=== PATIENT | male | born 1990 | race Two or more races ===

== ENCOUNTER 2024-06-17 16:44 | Emergency (ER) | payer MEDICAID, OTHER ==
[~2024-06-17] VITALS: Ht 175.3 cm; Wt 90.0 kg
[2024-06-17 18:20] LABS: Basophils # (auto) 0 10 ^3/uL (0-0.2); Basophils % (auto) 0.3 % (0.0-2.0); Eosinophils # (auto) 0.1 10 ^3/uL (0-0.8); Eosinophils % (auto) 0.9 % (0.0-7.0); Hematocrit 48.2 % (41.0-53.0); Hemoglobin 16.2 g/dL (13.5-17.5); Lymphocytes # (auto) 2.5 10 ^3/uL (0.4-5.4); Mean Corpuscular Hemoglobin 30.9 pg (28.0-32.0); Mean Corpuscular Hgb Conc. 33.6 g/dL (32.0-36.0); Mean Corpuscular Volume 92.1 fL (80.0-100.0); Monocytes % (auto) 11.2 % (0.0-12.0); Neutrophils # (auto) 5.4 10 ^3/uL (1.6-8.6); Neutrophils % (auto) 59.6 % (37.0-80.0); Nucleated Red Blood Cells % 0.1 %; Platelet Count (auto) 164 10^3/uL (140-450); Red Blood Cells 5.24 10^6/uL (4.5-5.90); Red Cell Distribution Width 12.9 % (11.8-14.3); White Blood Cell 9.1 10^3/uL (4.4-10.8)
[2024-06-17 18:22] LABS: Alanine Aminotransferase 73 U/L (7-40); Albumin 4.1 g/dL (3.2-4.8); Alkaline Phosphatase 120 U/L (46-116); Anion Gap 6 (5-15); Aspartate Aminotransferase 30 U/L (13-40); BUN/Creatinine Ratio 19.7 (10.0-20.0); Bilirubin, Total 0.4 mg/dL (0.2-1.0); Blood Urea Nitrogen 15 mg/dL (9-23); Calcium 10.2 mg/dL (8.7-10.4); Carbon Dioxide 29 mmol/L (20-31); Chloride 108 mmol/L (98-107); Glucose 90 mg/dL (74-106); Potassium 4.6 mmol/L (3.5-5.1); Sodium 143 mmol/L (136-145); Total Protein 6.2 g/dL (5.7-8.2)
[2024-06-17] MEDS ORDERED: HYDR-3682 PO (20:02)
[2024-06-17 20:35] VITALS: BP 134/97; PULSE 89; RESP 16; O2SAT 99
[2024-06-17] MEDS ORDERED: LOSA-534 PO (20:35)
[2024-06-17] MEDS: ALPRAZolam 0.5 MG TAB PO ONE (20:39)
== END 2024-06-17 20:43 | disposition home or self-care (01) ==
LOC: EDBD 16:44 → ER 16:50
DX: F41.9 Anxiety disorder, unspecified (principal); F41.0 Panic disorder [episodic paroxysmal anxiety]
CPT/HCPCS: 36415; 71045; 80053; 84484; 85025

== ENCOUNTER 2024-10-05 20:42 | Emergency (ER) | payer MEDICAID ==
[~2024-10-05] VITALS: Ht 175.3 cm; Wt 92.8 kg
[~2024-10-05 20:42] MED LIST: HYDR-3682 PO; LOSA-534 PO
[2024-10-05 21:11] VITALS: BP 140/85; PULSE 131; RESP 14; O2SAT 94
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
== END 2024-10-06 02:14 | disposition home or self-care (01) ==
LOC: ER 20:42
DX: R10.9 Unspecified abdominal pain (principal); M79.641 Pain in right hand; M54.59 Other low back pain; I10 Essential (primary) hypertension